=== PATIENT | male | born 1985 | race Caucasian/White ===

== ENCOUNTER 2017-03-28 17:26 | Emergency (ER) | payer SELFPAY ==
[~2017-03-28] VITALS: Ht 175.3 cm; Wt 83.0 kg
--- NOTE | 2017-03-28 17:55 | PD ---
HPI Chief Complaint: alcohol intoxication Time Seen by Provider: 17:45 Travel History International Travel<30 days: No Contact w/Intl Traveler<30days: No History of Present Illness HPI 31-year-old male brought in by EMS from [facility] where he was attempting to voluntarily admit himself alcohol detoxification. Apparently the facility did not have an open bed and sent him to the emergency department because his blood alcohol level was 0.293. The patient reports he has had 16 shots of vodka since this morning his last drink was approximately 3 hours ago. He has been drinking heavily like this for several years. He reports 3 episodes of withdrawal in the last 2 years. He denies having seizures when coming off alcohol. He has no medical complaint. [facility] Past Medical History Medical History: Denies Significant Hx Social History Tobacco Use: No Allergies-Medications (Allergen,Severity, Reaction): Coded Allergies: No Known Allergies (Unverified , 03/28/17) Review of Systems Except as stated in HPI: all other systems reviewed are Neg General / Constitutional: No: Fever Eyes: No: Visual changes HENT: No: Headaches Cardiovascular: No: Chest Pain or Discomfort Respiratory: No: Shortness of Breath Gastrointestinal: No: Abdominal Pain Genitourinary: No: Dysuria Physical Exam Narrative GENERAL: Well-nourished, well-developed patient. Patient appears intoxicated with slurred speech and smells of alcohol SKIN: Focused skin assessment warm/dry. No abrasions or ecchymosis HEAD: Normocephalic. Atraumatic EYES: No scleral icterus. No injection or drainage. NECK: Supple, trachea midline. No JVD or lymphadenopathy. Cervical spine nontender. CARDIOVASCULAR: Regular rate and rhythm without murmurs, gallops, or rubs. RESPIRATORY: Breath sounds equal bilaterally. No accessory muscle use. GASTROINTESTINAL: Abdomen soft, non-tender, nondistended. MUSCULOSKELETAL: No cyanosis, or edema. BACK: Nontender without obvious deformity. No CVA tenderness. Data Data Last Documented VS Vital Signs Date Time Temp Pulse Resp B/P (MAP) Pulse Ox O2 Delivery O2 Flow Rate FiO2 03/28/17 18:19 98.4 102 14 138/95 (109) 96 MDM Medical Decision Making Medical Screen Exam Complete: Yes Emergency Medical Condition: Yes Differential Diagnosis Alcohol intoxication Narrative Course 31-year-old male brought in by EMS for alcohol intoxication. Patient reports drinking 16 shots of vodka today with his last drink being 3 hours ago. Patient reports he's been treating length as for the last several years. He denies seizure activity with alcohol withdrawal. He has no stated medical complaint. Patient be held in the emergency department and observed until he is clinically not intoxicated with steady gait. He is referred [facility] for alcohol abuse treatment. Diagnosis Primary Impression: Alcohol intoxication Qualified Codes: F10.920 - Alcohol use, unspecified with intoxication, uncomplicated Referrals: [facility] Additional Instructions: Abstain from drinking alcohol. You were given information regarding [facility] for alcohol treatment and rehabilitation. Disposition: 01 DISCHARGE HOME Condition: Stable Faina Liu Mar 28, 2017 17:55
[2017-03-28 18:19] VITALS: BP 138/95; PULSE 102; RESP 14; TEMP 98.4; O2SAT 96
--- NOTE | 2017-03-28 18:26 | PD ---
Data Data Last Documented VS Vital Signs Date Time Temp Pulse Resp B/P (MAP) Pulse Ox O2 Delivery O2 Flow Rate FiO2 03/28/17 18:19 98.4 102 14 138/95 (109) 96 MDM Supervised Visit with SIENNA: Yes Narrative Course The history, exam, and medical decision-making in the associated mid-level provider note were completed with my assistance. I reviewed and agree with the findings presented. I attest that I had a [id number] encounter with the patient on the same day, and personally performed and documented my assessment and findings in the medical record. *My assessment and Findings: 31-year-old man, here for alcohol intoxication sent from [facility] where he went for detox. They apparently don't have a bed but he was too drunk to discharge they brought him to the emergency department. He has no complaints. He appears intoxicated. He is able to stand but is still unsteady. I recommend he was sober up a few hours in the ED prior to discharge. Patient is not an immediate threat to himself or others and does not meet criteria for involuntary hold. Diagnosis Primary Impression: Alcohol intoxication Qualified Codes: F10.920 - Alcohol use, unspecified with intoxication, uncomplicated Referrals: [facility] Raj Ferguson MD Mar 28, 2017 18:26
--- NOTE | 2017-03-28 21:33 | PD ---
Data Data Last Documented VS Vital Signs Date Time Temp Pulse Resp B/P (MAP) Pulse Ox O2 Delivery O2 Flow Rate FiO2 03/28/17 18:19 98.4 102 14 138/95 (109) 96 MDM Supervised Visit with SIENNA: No Narrative Course 9:33 PM: Patient ambulated without difficulty, out at the desk asking for food. He is safe for discharge. Diagnosis Primary Impression: Alcohol intoxication Qualified Codes: F10.920 - Alcohol use, unspecified with intoxication, uncomplicated Referrals: [facility] Additional Instruction: Abstain from drinking alcohol. You were given information [facility] and [facility]. Disposition: 01 DISCHARGE HOME Condition: Stable Rja Tristan MD Mar 28, 2017 21:33
== END 2017-03-28 21:39 | disposition home or self-care (01) ==
LOC: NEPD 17:26
DX: F10.920 Alcohol use, unspecified with intoxication, uncomplicated (principal); Y90.9 Presence of alcohol in blood, level not specified
CPT/HCPCS: 99283